=== PATIENT | female | born 1955 | race Caucasian/White ===

== ENCOUNTER 2018-04-26 15:01 | Inpatient (IN) | payer MEDICARE, MEDICAID ==
[~2018-04-26] VITALS: Ht 167.6 cm; Wt 93.1 kg
[~2018-04-26 15:01] MED LIST: ASCO250T13 PO; ASPI81CH43; DEMEDEX; DONE5TAB11; LISI2.5T47; METO25TA62 OR; METO5TAB56; MULT-351 PO; NYSTPOW; PANTPAK; POTA8TAB2; SPIR25TA8; TEMA7.5C OR
[2018-04-26] MEDS ORDERED: SODIUM CHLORIDE 0.9% 1,000 ML IV ONE (15:48)
[2018-04-26 16:13] LABS: Basophils # (auto) 0.1 uL; Basophils % (auto) 0.8 % (0.0-2.0); Eosinophils # (auto) 0.4 uL; Eosinophils % (auto) 4.1 % (0.0-7.0); Hematocrit 40.2 % (36.0-46.0); Hemoglobin 13.4 g/dL (12.2-16.2); Lymphocytes % (auto) 32.6 % (10.0-50.0); Mean Corpuscular Hgb Conc. 33.3 g/dL (32.0-36.0); Monocytes # (auto) 0.6 uL; Monocytes % (auto) 6.4 % (0.0-12.0); Neutrophils # (auto) 5.1 uL; Neutrophils % (auto) 56.1 % (37.0-80.0); Platelet Count (auto) 413 10^3/uL (140-450); Red Blood Cells 4.32 10^6/uL (4.0-5.20); Red Cell Distribution Width 14.9 % (11.8-14.3); White Blood Cell 9.1 10^3/uL (4.4-10.8)
[2018-04-26 16:40] LABS: Lactic Acid w/Reflex 2.4 mmol/L (0.4-2.0); Magnesium 2.5 mg/dL (1.6-2.6)
[2018-04-26 16:50] LABS: Alanine Aminotransferase 26 U/L (13-56); Albumin 3.3 g/dL (3.4-5.0); Alkaline Phosphatase 103 U/L (45-117); Anion Gap 8 (5-15); Aspartate Aminotransferase 15 U/L (15-37); BUN/Creatinine Ratio 11.1; Bilirubin, Total 0.3 mg/dL (0.2-1.0); Blood Urea Nitrogen 11 mg/dL (7-18); Calcium 8.5 mg/dL (8.5-10.1); Carbon Dioxide 22 mmol/L (21-32); Chloride 108 mmol/L (98-107); GFR African American 73 mL/min; GFR Non-African American 60 mL/min; Glucose 182 mg/dL (74-106); Potassium 3.5 mmol/L (3.5-5.1); Sodium 138 mmol/L (136-145)
[2018-04-26] MEDS ORDERED: VANCOMYCIN HCL 125MG/5ML ORAL SOL PO ONE (17:30)
[2018-04-26] MEDS ORDERED: metroNIDAZOLE 500MG/100ML 100 ML IV ONE (17:30)
[2018-04-26 23:28] LABS: Urine WBC None Seen /hpf (0 - 5)
[2018-04-27 00:18] LABS: Urine Bacteria FEW /hpf (None Seen); Urine Blood Negative /uL (Negative); Urine Specific Gravity 1.012 (1.001-1.035)
[2018-04-27] MEDS ORDERED: GLIP-115 PO (09:06)
[2018-04-27] MEDS ORDERED: INSREG3 (09:06)
[2018-04-27] MEDS ORDERED: METF-370 PO (09:06)
[2018-04-27] MEDS ORDERED: glipiZIDE 5 MG TAB PO ONE (09:15)
[2018-04-27] MEDS ORDERED: VANCOMYCIN PER PHARMACY 0 MG IV SCH (09:15)
[2018-04-27] MEDS ORDERED: cefTRIAXone 1GM/10ml IVPUSH 10 ML IV ONE (09:15)
[2018-04-27] MEDS ORDERED: DEXTROSE (50%) 50ML SYRG IV PRN (09:15)
[2018-04-27] MEDS ORDERED: IBUPROFEN 400 MG TAB PO PRN (09:30)
[2018-04-27] MEDS ORDERED: MULTIPLE VITAMIN TAB PO ONE (09:30)
[2018-04-27] MEDS ORDERED: PANTOPRAZOLE 40 MG TAB PO ONE (09:30)
[2018-04-27] MEDS ORDERED: ZINC SULFATE 220mg CAP or TAB PO ONE (09:30)
[2018-04-27] MEDS ORDERED: HYDROcodone-ACET 5/325MG TAB PO PRN (09:30)
[2018-04-27] MEDS ORDERED: ACETAMINOPHEN 325 MG TAB PO PRN ×2 (09:30→09:45)
[2018-04-27] MEDS ORDERED: ONDANSETRON HCL 4 MG/2 ML VIAL IV PRN (09:30)
[2018-04-27] MEDS ORDERED: TEMAZEPAM 15 MG CAP PO PRN (09:30)
[2018-04-27] MEDS ORDERED: MORPHINE SULF INJ 2 MG/ML SYRINGE 1ML IV PRN ×2 (09:30)
[2018-04-27] MEDS ORDERED: MILK OF MAGNESIA 30ML SUSP PO PRN (09:30)
[2018-04-27] MEDS ORDERED: NITROGLYCERIN 0.4 MG SL TAB SL PRN (09:30)
[2018-04-27] MEDS: PANTOPRAZOLE 40 MG TAB PO SCH (10:00)
[2018-04-27] MEDS: MULTIPLE VITAMIN TAB PO SCH (10:00)
[2018-04-27] MEDS: ZINC SULFATE 220mg CAP or TAB PO SCH (10:00)
[2018-04-27] MEDS: METOPROLOL TARTRATE 25 MG TAB PO SCH ×2 (10:08→22:20)
[2018-04-27] MEDS: FAMOTIDINE 20 MG TAB PO SCH ×2 (10:08→22:20)
[2018-04-27] MEDS: LISINOPRIL 5 MG TAB PO SCH (10:09)
[2018-04-27] MEDS: ASCORBIC ACID 500 MG TAB PO SCH ×2 (10:09→22:20)
[2018-04-27] MEDS: ENOXAPARIN SOD 40 MG/0.4 ML SYRINGE SC SCH (10:10)
[2018-04-27] MEDS: ASPirin-EC 81 mg tab PO SCH (10:10)
[2018-04-27 10:17] LABS: Albumin 3.1 g/dL (3.4-5.0); BUN/Creatinine Ratio 13.2; Calcium 8.2 mg/dL (8.5-10.1); Potassium 3.7 mmol/L (3.5-5.1)
[2018-04-27 10:19] LABS: Bilirubin, Total 0.4 mg/dL (0.2-1.0); Total Protein 7.7 g/dL (6.4-8.2)
[2018-04-27] MEDS: VANCOMYCIN 1GM/250ML 250 ML IV SCH ×2 (10:36→22:19)
[2018-04-27] MEDS: InsuLIN REG 1unit/0.01ml Soln (100units/ml) SC SCH ×3 (10:52→22:25)
[2018-04-27] MEDS: ACCU-CHEK COMFORT CURVE STRIP VI SCH ×3 (10:52→22:21)
[2018-04-27] MEDS: SODIUM CHLOR 0.9% PF (SALINE LOCK) 10ML VIAL/SYR IV SCH ×2 (14:03→22:20)
[2018-04-27] MEDS ORDERED: RANI1TAB6 PO (14:07)
[2018-04-27] MEDS ORDERED: MOMLQ PO (14:09)
[2018-04-27 18:34] VITALS: BP 98/76
[2018-04-27] MEDS: DONEPEZIL HYDROCHLORIDE 5 MG TAB PO SCH (22:20)
[2018-04-27 23:07] VITALS: BP 141/69
[2018-04-28] VITALS (7 sets, daily range): BP systolic 128–148; BP diastolic 56–81
[2018-04-28 06:21] LABS: Basophils # (auto) 0.1 uL; Basophils % (auto) 0.8 % (0.0-2.0); Eosinophils # (auto) 0.3 uL; Eosinophils % (auto) 4.1 % (0.0-7.0); Hematocrit 39.8 % (36.0-46.0); Hemoglobin 13.3 g/dL (12.2-16.2); Lymphocytes % (auto) 36.5 % (10.0-50.0); Mean Corpuscular Hemoglobin 31.2 pg (28.0-32.0); Mean Corpuscular Hgb Conc. 33.5 g/dL (32.0-36.0); Mean Corpuscular Volume 93.2 fL (80.0-100.0); Monocytes # (auto) 0.5 uL; Monocytes % (auto) 5.9 % (0.0-12.0); Neutrophils # (auto) 4.3 uL; Neutrophils % (auto) 52.7 % (37.0-80.0); Nucleated Red Blood Cells % 0.1 %; Platelet Count (auto) 405 10^3/uL (140-450); Red Blood Cells 4.27 10^6/uL (4.0-5.20); Red Cell Distribution Width 15.2 % (11.8-14.3); White Blood Cell 8.2 10^3/uL (4.4-10.8)
[2018-04-28] MEDS: SODIUM CHLOR 0.9% PF (SALINE LOCK) 10ML VIAL/SYR IV SCH ×3 (06:45→22:07)
[2018-04-28] MEDS: InsuLIN REG 1unit/0.01ml Soln (100units/ml) SC SCH ×4 (06:48→22:09)
[2018-04-28 06:50] LABS: Albumin 3.1 g/dL (3.4-5.0); BUN/Creatinine Ratio 13.3; Bilirubin, Total 0.4 mg/dL (0.2-1.0); Calcium 8.2 mg/dL (8.5-10.1); Potassium 3.7 mmol/L (3.5-5.1); Total Protein 7.4 g/dL (6.4-8.2)
[2018-04-28] MEDS: glipiZIDE 5 MG TAB PO SCH (06:54)
[2018-04-28] MEDS: ACCU-CHEK COMFORT CURVE STRIP VI SCH ×4 (06:54→22:07)
[2018-04-28] MEDS: cefTRIAXone 1GM/10ml IVPUSH 10 ML IV SCH (09:12)
[2018-04-28] MEDS: VANCOMYCIN 1GM/250ML 250 ML IV SCH (09:12)
[2018-04-28] MEDS: ZINC SULFATE 220mg CAP or TAB PO SCH (09:12)
[2018-04-28] MEDS: ASPirin-EC 81 mg tab PO SCH (09:13)
[2018-04-28] MEDS: METOPROLOL TARTRATE 25 MG TAB PO SCH ×2 (09:16→22:02)
[2018-04-28] MEDS: FAMOTIDINE 20 MG TAB PO SCH ×2 (09:19→22:02)
[2018-04-28] MEDS: PANTOPRAZOLE 40 MG TAB PO SCH (09:19)
[2018-04-28] MEDS: MULTIPLE VITAMIN TAB PO SCH (09:19)
[2018-04-28] MEDS: LISINOPRIL 5 MG TAB PO SCH (09:20)
[2018-04-28] MEDS: ASCORBIC ACID 500 MG TAB PO SCH ×2 (09:20→22:02)
[2018-04-28] MEDS: ENOXAPARIN SOD 40 MG/0.4 ML SYRINGE SC SCH (09:20)
[2018-04-28] MEDS: DONEPEZIL HYDROCHLORIDE 5 MG TAB PO SCH (22:02)
[2018-04-29] VITALS (7 sets, daily range): BP systolic 125–151; BP diastolic 73–89
[2018-04-29] MEDS: ACCU-CHEK COMFORT CURVE STRIP VI SCH ×4 (06:25→22:51)
[2018-04-29] MEDS: SODIUM CHLOR 0.9% PF (SALINE LOCK) 10ML VIAL/SYR IV SCH ×3 (06:25→22:49)
[2018-04-29] MEDS: InsuLIN REG 1unit/0.01ml Soln (100units/ml) SC SCH ×4 (06:27→22:50)
[2018-04-29] MEDS: glipiZIDE 5 MG TAB PO SCH (06:27)
[2018-04-29] MEDS: FAMOTIDINE 20 MG TAB PO SCH ×2 (10:00→22:00)
[2018-04-29] MEDS: cefTRIAXone 1GM/10ml IVPUSH 10 ML IV SCH (11:17)
[2018-04-29] MEDS: VANCOMYCIN 1GM/250ML 250 ML IV SCH (11:18)
[2018-04-29] MEDS: ZINC SULFATE 220mg CAP or TAB PO SCH (11:23)
[2018-04-29] MEDS: METOPROLOL TARTRATE 25 MG TAB PO SCH ×2 (11:24→22:50)
[2018-04-29] MEDS: ASPirin-EC 81 mg tab PO SCH (11:24)
[2018-04-29] MEDS: MULTIPLE VITAMIN TAB PO SCH (11:25)
[2018-04-29] MEDS: PANTOPRAZOLE 40 MG TAB PO SCH (11:25)
[2018-04-29] MEDS: ASCORBIC ACID 500 MG TAB PO SCH ×2 (11:25→22:50)
[2018-04-29] MEDS: LISINOPRIL 5 MG TAB PO SCH (11:26)
[2018-04-29] MEDS: ENOXAPARIN SOD 40 MG/0.4 ML SYRINGE SC SCH (11:27)
[2018-04-29] MEDS: DONEPEZIL HYDROCHLORIDE 5 MG TAB PO SCH (22:49)
[2018-04-30] MEDS: VANCOMYCIN 1GM/250ML 250 ML IV SCH (04:08)
[2018-04-30 05:00] VITALS: BP 130/73
[2018-04-30 06:21] LABS: Potassium 3.7 mmol/L (3.5-5.1)
[2018-04-30 06:30] LABS: BUN/Creatinine Ratio 19.1; Calcium 8.2 mg/dL (8.5-10.1)
[2018-04-30] MEDS: SODIUM CHLOR 0.9% PF (SALINE LOCK) 10ML VIAL/SYR IV SCH ×2 (06:47→11:50)
[2018-04-30] MEDS: InsuLIN REG 1unit/0.01ml Soln (100units/ml) SC SCH ×2 (06:48→11:30)
[2018-04-30] MEDS: glipiZIDE 5 MG TAB PO SCH (06:48)
[2018-04-30] MEDS: ACCU-CHEK COMFORT CURVE STRIP VI SCH ×2 (06:48→11:50)
[2018-04-30] MEDS: cefTRIAXone 1GM/10ml IVPUSH 10 ML IV SCH (08:31)
[2018-04-30 09:00] VITALS: BP 159/88
[2018-04-30] MEDS: LISINOPRIL 5 MG TAB PO SCH (09:11)
[2018-04-30] MEDS: ASCORBIC ACID 500 MG TAB PO SCH (09:11)
[2018-04-30] MEDS: ASPirin-EC 81 mg tab PO SCH (09:12)
[2018-04-30] MEDS: METOPROLOL TARTRATE 25 MG TAB PO SCH (09:12)
[2018-04-30] MEDS: FAMOTIDINE 20 MG TAB PO SCH (09:12)
[2018-04-30] MEDS: PANTOPRAZOLE 40 MG TAB PO SCH (09:12)
[2018-04-30] MEDS: MULTIPLE VITAMIN TAB PO SCH (09:12)
[2018-04-30] MEDS: ZINC SULFATE 220mg CAP or TAB PO SCH (09:12)
[2018-04-30] MEDS: ENOXAPARIN SOD 40 MG/0.4 ML SYRINGE SC SCH (09:13)
[2018-04-30 10:24] VITALS: BP 159/88
== END 2018-04-30 12:15 | DRG 872 ==
LOC: EDBD 15:01 → ER 15:01 → TELE 15:02 → TELE-EAST 04-27 17:25
PROVIDERS: ADMIT Internal Medicine; ATTEND Internal Medicine Pulmonary Disease
DX: A41.9 Sepsis, unspecified organism (principal); A04.72 Enterocolitis due to Clostridium difficile, not specified as recurrent; E44.1 Mild protein-calorie malnutrition; N18.3 Chronic kidney disease, stage 3 (moderate); E66.01 Morbid (severe) obesity due to excess calories; I12.9 Hypertensive chronic kidney disease with stage 1 through stage 4 chronic kidney disease, or unspecified chronic kidney disease; E11.22 Type 2 diabetes mellitus with diabetic chronic kidney disease; E11.21 Type 2 diabetes mellitus with diabetic nephropathy; F03.90 Unspecified dementia, unspecified severity, without behavioral disturbance, psychotic disturbance, mood disturbance, and anxiety; K21.9 Gastro-esophageal reflux disease without esophagitis; K44.9 Diaphragmatic hernia without obstruction or gangrene; Z68.33 Body mass index [BMI] 33.0-33.9, adult; Z88.0 Allergy status to penicillin; Z74.01 Bed confinement status
CPT/HCPCS: 36415; 51702; 71045; 74176; 80048; 80053; 80202; 81001; 82962; 83036; 83605; 83690; 83735; 84443; 84484; 85025; 87040; 87081; 87086; 93306; 96365; 96372; 96375; 97163; J0696; J1815; J3490

== ENCOUNTER 2024-01-05 13:10 | Inpatient (IN) | payer MEDICARE, MEDICAID ==
[~2024-01-05] VITALS: Ht 170.2 cm; Wt 90.3 kg
[~2024-01-05 13:10] MED LIST changes: -ASCO250T13 PO; -DEMEDEX; +GLIP5TAB21 PO; +INSREG3; +METF-370 PO; -METO25TA62 OR; +METO25TA93 OR; -METO5TAB56; +MOMLQ PO; -NYSTPOW; -PANTPAK; -POTA8TAB2; +RANI-435 PO; -SPIR25TA8; -TEMA7.5C OR
[2024-01-05 13:49] VITALS: O2SAT 96
[2024-01-05 14:23] LABS: Basophils # (auto) 0 10 ^3/uL (0-0.2); Basophils % (auto) 0.6 % (0.0-2.0); Eosinophils # (auto) 0.4 10 ^3/uL (0-0.8); Eosinophils % (auto) 5.5 % (0.0-7.0); Hematocrit 39.7 % (36.0-46.0); Hemoglobin 12.7 g/dL (12.2-16.2); Lymphocytes # (auto) 2.5 10 ^3/uL (0.4-5.4); Mean Corpuscular Hgb Conc. 31.9 g/dL (32.0-36.0); Mean Corpuscular Volume 87.7 fL (80.0-100.0); Monocytes # (auto) 0.6 10 ^3/uL (0-1.3); Neutrophils # (auto) 3.2 10 ^3/uL (1.6-8.6); Neutrophils % (auto) 47.9 % (37.0-80.0); Nucleated Red Blood Cells % 0.1 %; Red Blood Cells 4.52 10^6/uL (4.0-5.20); Red Cell Distribution Width 16.1 % (11.8-14.3); White Blood Cell 6.6 10^3/uL (4.4-10.8)
[2024-01-05 14:40] LABS: Base Excess 0.4 mmol/L (-2.0-2.0)
[2024-01-05 14:42] LABS: Alanine Aminotransferase 87 U/L (7-40); Albumin 3.9 g/dL (3.2-4.8); Alkaline Phosphatase 224 U/L (46-116); Anion Gap 5 (5-15); Aspartate Aminotransferase 74 U/L (13-40); BUN/Creatinine Ratio 16.7 (10.0-20.0); Bilirubin, Total 0.4 mg/dL (0.2-1.0); Blood Urea Nitrogen 10 mg/dL (9-23); Calcium 9.2 mg/dL (8.7-10.4); Carbon Dioxide 26 mmol/L (20-30); Chloride 109 mmol/L (98-107); Glucose 178 mg/dL (74-106); Sodium 140 mmol/L (136-145); Total Protein 8.3 g/dL (5.7-8.2)
[2024-01-05 15:23] LABS: Urine Bacteria MANY /hpf (None Seen); Urine Blood TRACE /uL (Negative); Urine Budding Yeast MANY /hpf (None Seen); Urine Clarity Ex.Turbid (Clear); Urine Color Light-Orange (Yellow); Urine Mucus FEW (None Seen); Urine Protein, UAD 1+ (Negative); Urine Specific Gravity 1.027 (1.001-1.035); Urine Urobilinogen Normal (Negative); Urine WBC 481 /hpf (0 - 5); Urine WBC Clumps PRESENT /hpf (None Seen); Urine pH 5.5 (5.0-9.0)
[2024-01-05] MEDS ORDERED: NITR-87 PO (15:58)
[2024-01-05] MEDS: levoFLOXacin 500MG 100 ML IV ONE (16:15)
[2024-01-05 20:15] VITALS: RESP 16; O2SAT 93
[2024-01-06] MEDS ORDERED: hydrALAZINE HCL 20 MG/ML VL IV PRN (03:30)
[2024-01-06] MEDS ORDERED: MORPHINE SULFATE INJ 2 MG/ml SYRG IV PRN (03:30)
[2024-01-06] MEDS ORDERED: NITROGLYCERIN 0.4 MG SL TAB SL PRN (03:30)
[2024-01-06] MEDS ORDERED: ONDANSETRON HCL 4 MG/2 ML VIAL IV PRN (03:30)
[2024-01-06] MEDS ORDERED: DOCUSATE SOD 100 MG CAP PO PRN (03:30)
[2024-01-06] MEDS ORDERED: HYDROcodone-ACET 5/325MG TAB PO PRN (03:30)
[2024-01-06] MEDS ORDERED: DEXTROSE (50%) 50ML SYRG IV PRN (03:30)
[2024-01-06 04:06] LABS: Basophils # (auto) 0 10 ^3/uL (0-0.2); Basophils % (auto) 0.6 % (0.0-2.0); Eosinophils # (auto) 0.3 10 ^3/uL (0-0.8); Eosinophils % (auto) 3.7 % (0.0-7.0); Hematocrit 39.8 % (36.0-46.0); Hemoglobin 12.9 g/dL (12.2-16.2); Lymphocytes # (auto) 2.1 10 ^3/uL (0.4-5.4); Lymphocytes % (auto) 30.5 % (10.0-50.0); Mean Corpuscular Hemoglobin 28.4 pg (28.0-32.0); Mean Corpuscular Hgb Conc. 32.4 g/dL (32.0-36.0); Mean Corpuscular Volume 87.6 fL (80.0-100.0); Monocytes # (auto) 0.5 10 ^3/uL (0-1.3); Monocytes % (auto) 7.5 % (0.0-12.0); Neutrophils % (auto) 57.7 % (37.0-80.0); Nucleated Red Blood Cells % 0.1 %; Red Blood Cells 4.54 10^6/uL (4.0-5.20); Red Cell Distribution Width 16.6 % (11.8-14.3)
[2024-01-06 04:30] LABS: Alanine Aminotransferase 69 U/L (7-40); Albumin 3.8 g/dL (3.2-4.8); Alkaline Phosphatase 199 U/L (46-116); Anion Gap 5 (5-15); Aspartate Aminotransferase 51 U/L (13-40); BUN/Creatinine Ratio 13.3 (10.0-20.0); Blood Urea Nitrogen 8 mg/dL (9-23); Calcium 9.2 mg/dL (8.7-10.4); Carbon Dioxide 26 mmol/L (20-30); Chloride 108 mmol/L (98-107); Glucose 222 mg/dL (74-106); Potassium 3.8 mmol/L (3.5-5.1); Sodium 139 mmol/L (136-145)
[2024-01-06 04:31] LABS: Bilirubin, Total 0.6 mg/dL (0.2-1.0); Total Protein 8.5 g/dL (5.7-8.2)
[2024-01-06] MEDS: SODIUM CHLOR 0.9% PF (SALINE LOCK) 10ML VIAL/SYR IV SCH (06:07)
[2024-01-06] MEDS: InsuLIN REG 1unit/0.01ml Soln (100units/ml) SC SCH ×2 (07:10→21:37)
[2024-01-06] MEDS: ACCU-CHEK COMFORT CURVE STRIP VI SCH (07:10)
[2024-01-06] MEDS: levoFLOXacin 500MG 100 ML IV SCH (17:29)
[2024-01-06 20:00] VITALS: BP 147/72; PULSE 93; RESP 19; TEMP 98.3; O2SAT 99
[2024-01-06 21:00] VITALS: BP 147/72; PULSE 93; RESP 19; TEMP 98.3; O2SAT 99
[2024-01-06] MEDS: DONEPEZIL HYDROCHLORIDE 5 MG TAB PO SCH (21:33)
[2024-01-06] MEDS: METOPROLOL TARTRATE 50 MG TAB PO SCH (21:34)
[2024-01-07 01:00] VITALS: BP 120/63; PULSE 70; RESP 19; TEMP 98.3; O2SAT 99
[2024-01-07 05:00] VITALS: BP 118/75; PULSE 73; RESP 19; TEMP 98.3; O2SAT 99
[2024-01-07 05:54] LABS: Basophils # (auto) 0 10 ^3/uL (0-0.2); Basophils % (auto) 0.4 % (0.0-2.0); Eosinophils # (auto) 0.3 10 ^3/uL (0-0.8); Eosinophils % (auto) 3.4 % (0.0-7.0); Hematocrit 36.8 % (36.0-46.0); Hemoglobin 12.4 g/dL (12.2-16.2); Lymphocytes # (auto) 3.2 10 ^3/uL (0.4-5.4); Mean Corpuscular Hemoglobin 29.6 pg (28.0-32.0); Mean Corpuscular Hgb Conc. 33.7 g/dL (32.0-36.0); Mean Corpuscular Volume 87.7 fL (80.0-100.0); Monocytes # (auto) 0.7 10 ^3/uL (0-1.3); Monocytes % (auto) 8.7 % (0.0-12.0); Neutrophils # (auto) 3.4 10 ^3/uL (1.6-8.6); Neutrophils % (auto) 45.5 % (37.0-80.0); Red Cell Distribution Width 16.4 % (11.8-14.3); White Blood Cell 7.6 10^3/uL (4.4-10.8)
[2024-01-07 06:10] LABS: Alanine Aminotransferase 64 U/L (7-40); Alkaline Phosphatase 194 U/L (46-116); Anion Gap 6 (5-15); BUN/Creatinine Ratio 16.1 (10.0-20.0); Blood Urea Nitrogen 10 mg/dL (9-23); Carbon Dioxide 25 mmol/L (20-30); Chloride 103 mmol/L (98-107); Glucose 205 mg/dL (74-106); Potassium 3.9 mmol/L (3.5-5.1)
[2024-01-07 06:11] LABS: Albumin 3.7 g/dL (3.2-4.8); Aspartate Aminotransferase 50 U/L (13-40)
[2024-01-07 06:12] LABS: Bilirubin, Total 0.5 mg/dL (0.2-1.0); Sodium 134 mmol/L (136-145); Total Protein 8.3 g/dL (5.7-8.2)
[2024-01-07] MEDS: ASPirin 81 mg TAB PO SCH (08:26)
[2024-01-07] MEDS: MULTIPLE VITAMIN TAB PO SCH (08:27)
[2024-01-07] MEDS: LISINOPRIL 20 MG TAB PO SCH (08:28)
[2024-01-07 09:18] VITALS: BP 146/79; PULSE 92; RESP 18; TEMP 98.1; O2SAT 98
[2024-01-07 14:35] VITALS: BP 129/74; PULSE 86; RESP 18; TEMP 98; O2SAT 97
[2024-01-07 16:30] VITALS: BP 136/76; PULSE 80; RESP 18; TEMP 97.9; O2SAT 98
[2024-01-07 20:00] VITALS: PULSE 97; RESP 18; O2SAT 99
[2024-01-08 09:30] VITALS: BP 126/77; PULSE 79; RESP 18; TEMP 98.2; O2SAT 97
[2024-01-08 12:30] VITALS: BP 127/70; PULSE 66; RESP 17; TEMP 98.6; O2SAT 98
[2024-01-08] MEDS: levoFLOXacin 500 MG TAB PO ONE (13:21)
[2024-01-08 16:30] VITALS: BP 126/77; PULSE 76; RESP 20; TEMP 98.1; O2SAT 96
[2024-01-08 21:00] VITALS: BP 105/55; PULSE 93; RESP 17; TEMP 98.2; O2SAT 93
[2024-01-08] MEDS: MUPIROCIN 2% OINT 15gm or 22gm FOR MRSA NARES EACHNOSTRI SCH (21:23)
[2024-01-09 01:00] VITALS: BP 110/71; PULSE 72; RESP 17; TEMP 98.5; O2SAT 96
[2024-01-09 05:00] VITALS: BP 115/64; PULSE 87; RESP 17; TEMP 98.3; O2SAT 97
[2024-01-09 09:12] VITALS: BP 126/79; PULSE 99; RESP 21; TEMP 98.4; O2SAT 93
[2024-01-09] MEDS: LISINOPRIL 20 MG TAB PO ONE (10:15)
[2024-01-09] MEDS: levoFLOXacin 500 MG TAB PO SCH (10:17)
[2024-01-09 13:00] VITALS: BP 123/92; PULSE 82; RESP 20; TEMP 98; O2SAT 99
[2024-01-09 16:56] VITALS: BP 124/66; PULSE 87; RESP 17; TEMP 97.9; O2SAT 99
[2024-01-09 17:56] VITALS: BP 124/66; PULSE 86; RESP 17; TEMP 36.6; O2SAT 99
== END 2024-01-09 19:00 | DRG 71 ==
LOC: ER 13:10 → EDBD 13:10 → WEST WING 01-06 03:44 → OVERFLOW 01-06 03:44 → WEST WING 01-06 15:28
PROVIDERS: ADMIT Nurse Practitioner Family; ATTEND Family Medicine
DX: G93.41 Metabolic encephalopathy (principal); E44.0 Moderate protein-calorie malnutrition; N39.0 Urinary tract infection, site not specified; F03.90 Unspecified dementia, unspecified severity, without behavioral disturbance, psychotic disturbance, mood disturbance, and anxiety; R74.8 Abnormal levels of other serum enzymes; E11.65 Type 2 diabetes mellitus with hyperglycemia; I10 Essential (primary) hypertension; K21.9 Gastro-esophageal reflux disease without esophagitis; Z88.0 Allergy status to penicillin; Z79.899 Other long term (current) drug therapy; Z79.4 Long term (current) use of insulin; Z68.31 Body mass index [BMI] 31.0-31.9, adult
CPT/HCPCS: 36415; 36600; 71045; 74176; 80053; 81001; 82805; 82962; 83690; 84484; 85025; 87040; 87077; 87081; 87086; 96365; G0378; J1815; J1956